=== PATIENT | male | born 1975 | race Two or more races ===

== ENCOUNTER → 2017-09-01 | Outpatient (CLI) | payer OTHER ==
[~2017-09-01] MED LIST: ANAPROX DS550 M1 PO; LISINOPRIL5 MG PO; PREDNISONE20 MG PO; ULTRAM50 MG PO; VALIUM5 MG PO; VICODIN,LORT1 TABLET PO
== END | disposition home or self-care (01) ==
LOC: AMB 11:00
PROC: 06BY3ZC Excision of Hemorrhoidal Plexus, Percutaneous Approach (ICD-10-PCS; principal; 2017-09-01)
DX: K64.5 Perianal venous thrombosis (principal); I10 Essential (primary) hypertension; Z86.010 Personal history of colon polyps; F17.210 Nicotine dependence, cigarettes, uncomplicated
CPT/HCPCS: 88304